=== PATIENT | male | born 1985 | race Caucasian/White ===

== ENCOUNTER 2016-10-24 19:17 | Emergency (ER) | payer MEDICAID, OTHER ==
[2016-10-24 20:34] VITALS: BP 171/107
[2016-10-24] MEDS ORDERED: Amoxicillin/Clavulanate TAB* 875 MG PO ONE (20:40)
[2016-10-24] MEDS ORDERED: Ketorolac INJ* 60 MG/2 ML VIAL IM ONE (20:40)
--- NOTE | 2016-10-24 20:56 | UC ---
Ear Complaint HPI - HPI Summary HPI Summary: THREE DAYS OF LEFT EAR PAIN TODAY BEGAN HAVING SORE THROAT. IN TRIAGE ELEVATED BLOOD PRESSURE NOTED. NO FEVER. NO HEADACHES. NO CHEST PAIN OR SHORTNESS OF BREATH. - History of Current Complaint Chief Complaint: UCRespiratory Stated Complaint: EAR PAIN Time Seen by Provider: 10/24/16 20:25 Hx Obtained From: Patient Onset/Duration: Gradual Onset, Lasting Days, Still Present Severity Initially: Mild Severity Currently: Moderate Associated Signs/Symptoms: Positive: URI Symptoms. Negative: Discharge, Hearing Loss, Foreign Body Sensation - Allergies/Home Medications Allergies/Adverse Reactions: Allergies Allergy/AdvReac Type Severity Reaction Status Date / Time No Known Allergies Allergy Verified 10/24/16 20:31 PMH/Surg Hx/FS Hx/Imm Hx Previously Healthy: Yes - Surgical History Surgical History: None - Family History Known Family History: Positive: Hypertension Negative: Cardiac Disease, Respiratory Disease - Social History Occupation: Employed Full-time Alcohol Use: Occasionally Substance Use Type: None Smoking Status (MU): Former Smoker Review of Systems Constitutional: Negative Skin: Negative Eyes: Negative ENT: Sore Throat, Ear Ache Respiratory: Negative Cardiovascular: Negative Gastrointestinal: Negative Genitourinary: Negative Motor: Negative Neurovascular: Negative Musculoskeletal: Negative Neurological: Negative Psychological: Negative All Other Systems Reviewed And Are Negative: Yes Physical Exam Triage Information Reviewed: Yes Appearance: Well-Appearing, No Pain Distress, Well-Nourished Vital Signs: Initial Vital Signs Temp 98.0 F 10/24/16 20:28 Pulse 64 10/24/16 20:28 Resp 18 10/24/16 20:28 BP 171/107 10/24/16 20:28 Pulse Ox 100 10/24/16 20:28 Vital Signs Reviewed: Yes Eye Exam: Normal Eyes: Positive: Conjunctiva Clear ENT: Positive: Hearing grossly normal, Pharyngeal erythema, TM bulging, TM dull , TM red, Tonsillar swelling Dental Exam: Normal Neck exam: Normal Neck: Positive: Supple, Nontender, No Lymphadenopathy Respiratory Exam: Normal Respiratory: Positive: Chest non-tender, Lungs clear, Normal breath sounds, No respiratory distress Cardiovascular Exam: Normal Cardiovascular: Positive: RRR, No Murmur, Pulses Normal, Brisk Capillary Refill Abdominal Exam: Normal Abdomen Description: Positive: Nontender, No Organomegaly Musculoskeletal Exam: Normal Neurological Exam: Normal Psychological Exam: Normal Skin Exam: Normal Ear Complaint Course/Dx - Differential Dx/Diagnosis Differential Diagnosis/HQI/PQRI: Otitis Externa, Otitis Media, Perforated TM, URI Provider Diagnoses: ELEVATED BLOOD PRESSURE. LEFT OTITIS MEDIA. TONSILLITIS Discharge - Discharge Plan Condition: Stable Disposition: HOME Prescriptions: Amoxicillin/Clavulanate TAB* [Augmentin TAB 875*] 875 mg PO BID #20 tab Patient Education Materials: Otitis Media (ED), Tonsillitis (ED), Hypertension (ED) [place]: [facility] [place]] No Primary Care Phys,NOPCP [Primary Care Provider] - Additional Instructions: IN ADDITION TO THE EAR ACHE AND SORE THROAT; TODAY YOU SHOW AN ABNORMALLY HIGH BLOOD PRESSURE. 171/101. PLEASE CALL TO MAKE AN APPOINTMENT TO BE SEEN BY PRIMARY CARE PROVIDER FOR CONTINUED EVALUATION WITHIN THE NEXT FOUR DAYS. PLEASE GO TO EMERGENCY DEPARTMENT FOR CONTINUED EVALUATION IF YOU HAVE HEADACHES , VISUAL DISTURBANCES, CHEST PAIN, SHORTNESS OF BREATH OR ANY OTHER NEW OR UNUSUAL SYMPTOMS.
== END 2016-10-24 21:02 | disposition home or self-care (01) ==
LOC: UCEAST 19:17
DX: H66.92 Otitis media, unspecified, left ear (principal); J03.90 Acute tonsillitis, unspecified; R03.0 Elevated blood-pressure reading, without diagnosis of hypertension; Z87.891 Personal history of nicotine dependence
CPT/HCPCS: 96372; 99212; A9270-GY; G0463; J1885

== ENCOUNTER 2017-01-10 08:40 | Emergency (ER) | payer OTHER ==
--- NOTE | 2017-01-10 08:57 | UC ---
Throat Pain/Nasal Eitan HPI - HPI Summary HPI Summary: Patient presents with 1-2 day onset complaints of stuffy head, ear and throat pain. He denies fever, chills, chest pain, dyspnea, nausea, vomiting. He states he is able to handle his own secretions. States the throat pain is constant, and is worse with swallowing. He reports no ill contacts. - History of Current Complaint Hx Obtained From: Patient Severity: Moderate Cough: None Associated Signs & Symptoms: Positive: Other - Epiglottits Risk Factors Epiglottis Risk Factors: Negative <Liliana Vee - Last Filed: 01/10/17 08:52> <Mitzy Mena - Last Filed: 01/10/17 09:29> - History of Current Complaint Stated Complaint: EAR PAIN Time Seen by Provider: 01/10/17 08:41 - Allergies/Home Medications Allergies/Adverse Reactions: Allergies Allergy/AdvReac Type Severity Reaction Status Date / Time No Known Allergies Allergy Verified 01/10/17 08:56 PMH/Surg Hx/FS Hx/Imm Hx Previously Healthy: Yes Cardiovascular History: Hypertension - Surgical History Surgical History: None - Family History Known Family History: Positive: Hypertension Negative: Cardiac Disease, Respiratory Disease - Social History Occupation: Employed Full-time Lives: Alone Alcohol Use: Occasionally Substance Use Type: None Smoking Status (MU): Former Smoker <Liliana Vee - Last Filed: 01/10/17 08:52> Review of Systems Constitutional: Fatigue ENT: Sore Throat, Ear Ache Respiratory: Other - chest congestion Gastrointestinal: Negative Genitourinary: Negative Motor: Negative All Other Systems Reviewed And Are Negative: Yes <Liliana Vee - Last Filed: 01/10/17 08:52> Physical Exam Triage Information Reviewed: Yes Appearance: Ill-Appearing Vital Signs Reviewed: Yes Eye Exam: Normal ENT: Positive: Pharyngeal erythema, Tonsillar swelling, Tonsillar exudate, Muffled/hoarse voice Neck exam: Normal Respiratory Exam: Normal Cardiovascular: Positive: Tachycardia Abdominal Exam: Normal Bowel Sounds: Positive: Present Musculoskeletal Exam: Normal Skin Exam: Normal <Liliana Vee - Last Filed: 01/10/17 08:52> Vital Signs: Initial Vital Signs Temp 100.4 F 01/10/17 08:56 Pulse 114 01/10/17 08:56 Resp 16 01/10/17 08:56 BP 127/93 01/10/17 08:56 Pulse Ox 97 01/10/17 08:56 <Mitzy Mena - Last Filed: 01/10/17 09:29> Throat Pain/Nasal Course/Dx - Course Course Of Treatment: Patient presents with strep throat, he was given RX for Penvk 500 mg po qid x 10days. He was instructed to rest, push fluids, and take tylenol, and advil every four hours as needed for fever, generalzied achiness, also to utilize throat lozengers. If for any reasons his symptoms worsen, persist or other symtpoms develop he need to seek immediate re-evaluation. He verbalized understanding and was in agreement with the discharge plan. - Differential Dx/Diagnosis Differential Diagnosis/HQI/PQRI: Pharyngitis Provider Diagnoses: strep throat <Liliana Vee - Last Filed: 01/10/17 08:52> Discharge <Liliana Vee - Last Filed: 01/10/17 08:52> <Mitzy Mena - Last Filed: 01/10/17 09:29> - Discharge Plan Condition: Stable Disposition: HOME Prescriptions: Penicillin VK TAB 500 MG(NF) [Penicillin VK 500 mg Tab(NF)] 500 mg PO QID #40 tab Patient Education Materials: Strep Throat (ED) Referrals: No Primary Care Phys,NOPCP [Primary Care Provider] - [facility] [place]] Attestation Statement User Type: Provider - I was available for consult. This patient was seen by the DAVID. The patient was not presented to, seen by, or examined by me. -Gage <Mitzy Mena - Last Filed: 01/10/17 09:29>
[2017-01-10 09:01] VITALS: BP 127/93
== END 2017-01-10 09:05 | disposition home or self-care (01) ==
LOC: UCEAST 08:40
DX: J02.0 Streptococcal pharyngitis (principal); I10 Essential (primary) hypertension; Z87.891 Personal history of nicotine dependence
CPT/HCPCS: 99212; G0463

== ENCOUNTER 2017-05-15 21:22 | Emergency (ER) | payer OTHER ==
[2017-05-16 00:34] LABS: Comments Flag Yes; Hematocrit 48 % (42-52); Hemoglobin 17.3 g/dl (14.0-18.0); Mean Corpuscular HGB Conc 36 g/dl (31-36); Mean Corpuscular Hemoglobin 33 pg (27-31); Mean Corpuscular Volume 91 fL (80-94); Mean Platelet Volume 7 um3 (7.4-10.4); Red Blood Count 5.23 10^6/ul (4.0-5.4); Red Cell Distribution Width 14 % (10.5-15); White Blood Count 7.3 10^3/ul (3.5-10.8)
[2017-05-16 00:48] LABS: ALT 63 U/L (7-52); Albumin 4.7 g/dL (3.2-5.2); Alkaline Phosphatase 25 U/L (34-104); BUN/Creatinine Ratio 16.9 (8-20); Blood Urea Nitrogen 15 mg/dL (6-24); CO2 Carbon Dioxide 24 mmol/L (22-32); Chloride 99 mmol/L (101-111); EGFR African American 127.4 (>60); EGFR Non-African American 99.1 (>60); Globulin 2.9 g/dL (2-4); Glucose 109 mg/dL (70-100); Sodium 132 mmol/L (133-145); Total Protein 7.6 g/dL (6.4-8.9)
[2017-05-16 00:49] LABS: Benzodiazepine Urine Screen None Detected (None Detect)
[2017-05-16 00:52] LABS: Urine Bacteria Absent (Absent); Urine Bilirubin Negative (Negative); Urine Glucose Negative (Negative); Urine Nitrite Negative (Negative)
[2017-05-16 01:14] LABS: AST 28 U/L (13-39); Acetaminophen < 15 mcg/mL; Alcohol < 10 mg/dL (<10); Anion Gap 9 mmol/L (2-11); Salicylate < 2.50 mg/dL (<30)
[2017-05-16 01:22] LABS: TSH (Thyroid Stimulating Horm) 2.92 mcIU/mL (0.34-5.60)
[2017-05-16] MEDS ORDERED: NS 0.9% 1000 ML* 1,000 ML IV SCH (02:45)
[2017-05-16] MEDS ORDERED: Iohexol 350* (CONTRAST) 500 ML MDV IV ONE (03:25)
[2017-05-16] MEDS ORDERED: Iodixanol* (CONTRAST) 320 MG/ML 100 ML SDV IV ONE (03:52)
[2017-05-16] MEDS ORDERED: hydrOXYzine HCL TAB* 25 MG PO ONE (04:48)
[2017-05-16 05:18] VITALS: BP 175/110
--- NOTE | 2017-05-16 05:21 | ED ---
Lexi Villegas Rebecca, scribed for Keyanna Barahonauel on 05/16/17 at 0056 . Psychiatric Complaint - HPI Summary HPI Summary: Pt is a 31 y/o M who presents to ED c/o anxiety, difficulty sleeping, SOB and palpitations. Pt suspects his anxiety has worsened due to difficult sleeping, alleviated by nothing. Denies depression, SIs, calf pain, CP. States that he has been "waking up, gasping for air." No PMHx anxiety. Pt began a tretament program to cease alcohol use 5 days ago. - History Of Current Complaint Chief Complaint: EDPsychosocial Time Seen by Provider: 05/16/17 00:06 Hx Obtained From: Patient Onset/Duration: Still Present Character: Anxious Aggravating Factor(s): Other - Dififculty sleeping Alleviating Factor(s): Nothing Associated Signs And Symptoms: Positive: Sleep Disturbance Related History: Negative For: Prior Psychiatric Issues Has Suicidal: Denies: Thoughts - Allergies/Home Medications Allergies/Adverse Reactions: Allergies Allergy/AdvReac Type Severity Reaction Status Date / Time No Known Allergies Allergy Verified 01/10/17 08:56 PMH/Surg Hx/FS Hx/Imm Hx Cardiovascular History: Reports: Hx Hypertension Psychiatric History: Denies: Hx Anxiety, Hx Depression Infectious Disease History: Yes Infectious Disease History: Denies: Traveled Outside the [place] in Last 30 Days - Family History Known Family History: Positive: Hypertension Negative: Cardiac Disease, Respiratory Disease - Social History Alcohol Use: Daily Alcohol Amount: 12-14 beers; havent drank in 4 days Substance Use Type: Reports: None Smoking Status (MU): Former Smoker Review of Systems Positive: Palpitations. Negative: Chest Pain Positive: Shortness Of Breath Positive: Other - NEGATIVE: calf pain Psychological: Other - Difficulty sleeping Positive: Anxious, Other - NEGATIVE: SIs. Negative: Depressed All Other Systems Reviewed And Are Negative: Yes Physical Exam - Summary Physical Exam Summary: Appearance: Well appearing, no pain distress Skin: warm, dry, reflects adequate perfusion Head/face: normal Eyes: EOMI, SUNNY ENT: normal Neck: supple, nontender Respiratory: CTA, breath sounds present Cardiovascular: RRR, pulses symmetrical Abdomen: nontender, soft Bowel: present Musculoskeletal: normal, strength/ROM intact Neuro: normal, sensory motor intact, A&Ox3 Triage Information Reviewed: Yes Vital Signs On Initial Exam: Initial Vitals Temp Pulse Resp BP Pulse Ox 98.1 F 87 20 195/111 98 05/15/17 21:30 05/15/17 21:30 05/15/17 21:30 05/15/17 21:30 05/15/17 21:30 Vital Signs Reviewed: Yes - [place] Coma Scale Coma Scale Total: 15 Diagnostics - Vital Signs Vital Signs Temp Pulse Resp BP Pulse Ox 05/16/17 00:30 63 142/94 97 05/16/17 00:09 82 98 05/16/17 00:07 142/100 05/15/17 21:30 98.1 F 87 20 195/111 98 - Laboratory Lab Results: Lab Results 05/16/17 Range/Units 00:20 WBC 7.3 (3.5-10.8) 10^3/ul RBC 5.23 (4.0-5.4) 10^6/ul Hgb 17.3 (14.0-18.0) g/dl Hct 48 (42-52) % MCV 91 (80-94) fL MCH 33 H (27-31) pg MCHC 36 (31-36) g/dl RDW 14 (10.5-15) % Plt Count 193 (150-450) 10^3/ul MPV 7 L (7.4-10.4) um3 Neut % (Auto) 61.0 (38-83) % Lymph % (Auto) 29.6 (25-47) % [place] % (Auto) 6.5 (1-9) % Eos % (Auto) 1.9 (0-6) % Baso % (Auto) 1.0 (0-2) % Absolute Neuts (auto) 4.4 (1.5-7.7) 10^3/ul Absolute Lymphs (auto) 2.2 (1.0-4.8) 10^3/ul Absolute Monos (auto) 0.5 (0-0.8) 10^3/ul Absolute Eos (auto) 0.1 (0-0.6) 10^3/ul Absolute Basos (auto) 0.1 (0-0.2) 10^3/ul Absolute Nucleated RBC 0.03 10^3/ul Nucleated RBC % 0.4 Result Diagrams: 05/16/17 00:20 05/16/17 00:20 Lab Statement: Any lab studies that have been ordered have been reviewed, and results considered in the medical decision making process. - Radiology CXR Xray Interpretation: No Acute Changes Radiology Interpretation Completed By: ED Physician - CT CTA Chest CT Interpretation: No Acute Changes - Negative for pulmonary embolus. Negative for thoracic aortic aneurysm or dissection. Lungs clear of acute disease. Fatty liver. ED physician reviewed radiology report and agrees. CT Interpretation Completed By: Radiologist Re-Evaluation - Re-Evaluation First Eval Re-Evaluation Time: 04:35 Comment: Discussed results with the pt. Course/Dx - Course Assessment/Plan: Pt is a 31 y/o M who presents to ED c/o anxiety, difficulty sleeping, SOB and palpitations. Pt suspects his anxiety has worsened due to difficult sleeping, alleviated by nothing. Denies depression, SIs, calf pain, CP. States that he has been "waking up, gasping for air." No PMHx anxiety. Pt began a tretament program to cease alcohol use 5 days ago. CXR and chest/thorax CTA reveal no acute findings. UA was done. IN the ED course, pt received fluids and Atarax. Medically cleared for MHE at 0435. Upon cmpletiong of MHE it has been determined that the pt will be D/C to home. Pt will be D/C to home with Dx of anxiety with Rx for Vistaril and a follow up with [facility] [place] Physician referral. He understands and agrees. Medications reviewed. Elevated BP noted. - Differential Dx/Clinical Impression Provider Diagnosis: Anxiety Discharge - Discharge Plan Condition: Stable Disposition: HOME Prescriptions: Hydroxyzine Pamoate [Vistaril] 25 mg PO TID #15 cap Patient Education Materials: Anxiety (ED) Referrals: [facility] [place] [facility] REFERRAL [Outside] - 3 Days The documentation as recorded by the Lexi rincon Rebecca accurately reflects the service I personally performed and the decisions made by , Michael Barahona.
--- NOTE | 2017-05-16 07:52 | RAD ---
HISTORY: Shortness of breath COMPARISONS: None VIEWS: 4: Frontal dual-energy and lateral views of the chest. FINDINGS: CARDIOMEDIASTINAL SILHOUETTE: The cardiomediastinal silhouette is normal. BILL: The bill are normal. PLEURA: The costophrenic angles are sharp. No pleural abnormalities are noted. LUNG PARENCHYMA: The lungs are clear. ABDOMEN: The upper abdomen is clear. There is no subphrenic gas. BONES AND SOFT TISSUES: No bone or soft tissue abnormalities are noted. OTHER: None. IMPRESSION: NO ACTIVE CARDIOPULMONARY DISEASE.
--- NOTE | 2017-05-16 08:07 | RAD ---
INDICATION: Chest pain. Short of breath. Evaluate for pulmonary embolus. COMPARISON: Chest x-ray May 16, 2017 TECHNIQUE: Axial source images were obtained from the thoracic inlet to the hemidiaphragms following administration of [address] angiographic technique was utilized. Coronal and sagittal reconstructed images were acquired. CHEST FINDINGS: Neck/thyroid: The visualized neck to include the thyroid appear normal. Chest wall: There are no acute abnormalities of the bony thorax or chest wall. There is no supraclavicular, infraclavicular, or axillary lymphadenopathy. Lungs : There are no pulmonary parenchymal masses or infiltrates. The pulmonary interstitium appears normal. There are no endobronchial lesions. Cardiomediastinal structures: There is no CT evidence of acute pulmonary embolic disease. The heart is normal in size. There is no pericardial effusion. There is no evidence of aortic aneurysm or dissection. There is no mediastinal or hilar adenopathy. The esophagus appears normal. Pleura : There are no pleural-based masses or effusions. Other: Limited views of the upper abdomen show hepatomegaly with hepatic steatosis.. IMPRESSION: NO CT EVIDENCE OF ACUTE PULMONARY EMBOLIC DISEASE. LUNGS CLEAR.
== END 2017-05-16 05:22 | disposition home or self-care (01) ==
LOC: ED 21:22
DX: F41.9 Anxiety disorder, unspecified (principal); R06.02 Shortness of breath; R00.2 Palpitations; Z87.891 Personal history of nicotine dependence
CPT/HCPCS: 36415; 71020; 71275; 80053; 80307; 80320; 80329; 81003; 81015; 84443; 84484; 85025; 85379; 99282; A9270-GY; G0480; Q9967

== ENCOUNTER 2018-05-23 01:37 | Emergency (ER) | payer OTHER ==
[2018-05-23] MEDS ORDERED: ALPRAZolam TAB* 0.5 MG PO ONE (02:56)
--- NOTE | 2018-05-23 03:48 | ED ---
Complex/Multi-Sys Presentation - HPI Summary HPI Summary: Patient is a 32 y/o M w/ c/o tingling in his arms and legs. Sx are reported to onset this night, states he was lying down when Sx onset. Patient reports difficulty sleeping over the past few days and swelling of feet as well. Recent trauma, N/V, SOB is denied. He notes Hx of HTN, unsure of names of blood pressure medication. Hx of anxiety and panic attacks as well, states he used to take lorazepam with relief in Sx, but does not do so currently. On triage, pain is denied, nothing is noted to aggravate/alleviate Sx. Home medications and allergies are reviewed. - History Of Current Complaint Chief Complaint: EDGeneral Time Seen by Provider: 05/23/18 02:40 Hx Obtained From: Patient Onset/Duration: Lasting Hours - onset last night, Still Present Timing: Constant, Hours - onset last night Severity Currently: None - pain is denied Aggravating Factor(s): nothing Alleviating Factor(s): nothing Associated Signs And Symptoms: Positive: Edema - feet, Other - POSITIVE: tingling in arms and legs, difficulty sleeping NEGATIVE: recent trauma. Negative: SOB, Nausea, Vomiting - Allergies/Home Medications Allergies/Adverse Reactions: Allergies Allergy/AdvReac Type Severity Reaction Status Date / Time No Known Allergies Allergy Verified 01/10/17 08:56 PMH/Surg Hx/FS Hx/Imm Hx Endocrine/Hematology History: Denies: Hx Diabetes Cardiovascular History: Reports: Hx Hypertension History: Denies: Hx Dialysis, Hx Renal Disease Psychiatric History: Denies: Hx Anxiety, Hx Depression Infectious Disease History: No Infectious Disease History: Denies: Traveled Outside the [place] in Last 30 Days - Family History Known Family History: Positive: Hypertension Negative: Cardiac Disease, Respiratory Disease - Social History Alcohol Use: None Alcohol Amount: 12-14 beers; havent drank in 4 days Substance Use Type: Reports: None Smoking Status (MU): Former Smoker Review of Systems Positive: Other - POSITIVE: difficulty sleeping NEGATIVE: recent trauma Negative: Shortness Of Breath Negative: Vomiting, Nausea Positive: Edema - feet Neurological: Other - arms and legs tingling All Other Systems Reviewed And Are Negative: Yes Physical Exam - Summary Physical Exam Summary: VITAL SIGNS: Reviewed. GENERAL: Patient is a well-developed and nourished male who is lying comfortable in the stretcher. Patient is not in any acute respiratory distress. HEAD AND FACE: No signs of trauma. No ecchymosis, hematomas or skull depressions. No sinus tenderness. EYES: PERRLA, EOMI x 2, No injected conjunctiva, no nystagmus. EARS: Hearing grossly intact. Ear canals and tympanic membranes are within normal limits. MOUTH: Oropharynx within normal limits. NECK: Supple, trachea is midline, no adenopathy, no JVD, no carotid bruit, no c- spine tenderness, neck with full ROM. CHEST: Symmetric, no tenderness at palpation LUNGS: Clear to auscultation bilaterally. No wheezing or crackles. CVS: Regular rate and rhythm, S1 and S2 present, no murmurs or gallops appreciated. ABDOMEN: Soft, non-tender. No signs of distention. No rebound no guarding, and no masses palpated. Bowel sounds are normal. EXTREMITIES: FROM in all major joints, no edema, no cyanosis or clubbing. NEURO: Alert and oriented x 3. No acute neurological deficits. Speech is normal and follows commands. SKIN: Dry and warm Triage Information Reviewed: Yes Vital Signs On Initial Exam: Initial Vitals Temp Pulse Resp BP Pulse Ox 98.1 F 100 20 173/93 98 05/23/18 01:39 05/23/18 01:39 05/23/18 01:39 05/23/18 01:39 05/23/18 01:39 Vital Signs Reviewed: Yes Diagnostics - Vital Signs Vital Signs Temp Pulse Resp BP Pulse Ox 05/23/18 03:02 18 05/23/18 01:39 98.1 F 100 20 173/93 98 - Laboratory Lab Statement: Any lab studies that have been ordered have been reviewed, and results considered in the medical decision making process. Re-Evaluation - Re-Evaluation First Eval Re-Evaluation Time: 03:47 Change: Improved Comment: Patient reports that he is feeling better. He will be discharged to home and follow up with PCP in 1-2 days. Patient is agreeable with this plan. Complex Multi-Symp Course/Dx Course Of Treatment: Patient is a 32 y/o M w/ c/o tingling in his arms and legs. Sx are reported to onset this night, states he was lying down when Sx onset. Patient reports difficulty sleeping over the past few days and swelling of feet as well. Recent trauma, N/V, SOB is denied. He notes Hx of HTN, unsure of names of blood pressure medication. Hx of anxiety and panic attacks as well, states he used to take lorazepam with relief in Sx, but does not do so currently. Physical exam was normal. During ED course, patient received Xanax 0.5 mg PO ONCE. 0347 - Patient reports that he is feeling better. He will be discharged to home and follow up with PCP in 1-2 days. Patient is agreeable with this plan. Dx of anxiety. - Diagnoses Provider Diagnoses: Anxiety Discharge - Sign-Out/Discharge Documenting (check all that apply): Patient Departure - discharge - Discharge Plan Condition: Stable Disposition: HOME Prescriptions: ALPRAZolam TAB* [Xanax TAB*] 0.5 mg PO BID PRN #10 tab MDD 2 PRN Reason: Anxiety Patient Education Materials: Anxiety (ED) Referrals: Dinh Kenney MD [Primary Care Provider] - 2 Days Additional Instructions: RETURN TO THE EMERGENCY DEPARTMENT FOR CHANGING OR WORSENING SYMPTOMS. FOLLOW UP WITH PRIMARY CARE PHYSICIAN IN 1-2 DAYS. - Attestation Statements Document Initiated by Scribe: Yes Documenting Scribe: Moises Schrader Provider For Whom Scribe is Documenting (Include Credential): Amisha Lauren MD Scribe Attestation: Moises Villegas , scribed for Amisha Lauren MD on 05/23/18 at 0504.
[2018-05-23 03:58] VITALS: BP 135/87
== END 2018-05-23 04:00 | disposition home or self-care (01) ==
LOC: ED 01:37
DX: F41.9 Anxiety disorder, unspecified (principal); R60.0 Localized edema; I10 Essential (primary) hypertension; Z87.891 Personal history of nicotine dependence
CPT/HCPCS: 99282; A9270-GY

== ENCOUNTER 2019-08-22 13:48 | Emergency (ER) | payer OTHER ==
[2019-08-22 16:31] VITALS: BP 154/91
--- NOTE | 2019-08-22 16:57 | ED ---
Upper Extremity Pain - HPI Summary HPI Summary: This patient is a 33-year-old male presenting to the ED with right index finger injury. Patient states he shot a nail from a nail gun through the distal tip of the right index finger. No bleeding noted. No traveled from the radial portion of the right distal index tip to the ulnar side. Denies any pain to the area. It appears been nail went through the fat pad of the distal fingertip. No bruising noted. Patient has full range of motion. No erythema or swelling noted. Denies any fevers. Last tetanus 2-3 years ago per patient. This was a work-related injury. . - History of Current Complaint Chief Complaint: EDExtremityUpper Stated Complaint: FINGER INJURY PER PT Time Seen by Provider: 08/22/19 15:10 Hx Obtained From: Patient Timing: Constant Severity Initially: Mild Severity Currently: None Character: Sharp Aggravating Factor(s): Nothing Alleviating Factor(s): Nothing Associated Signs & Symptoms: Positive: Negative - Allergies/Home Medications Allergies/Adverse Reactions: Allergies Allergy/AdvReac Type Severity Reaction Status Date / Time No Known Allergies Allergy Verified 08/22/19 14:00 PMH/Surg Hx/FS Hx/Imm Hx Previously Healthy: Yes Endocrine/Hematology History: Denies: Hx Diabetes Cardiovascular History: Reports: Hx Hypertension History: Denies: Hx Dialysis, Hx Renal Disease Sensory History: Denies: Hx Contacts or Glasses Opthamlomology History: Denies: Hx Contacts or Glasses Psychiatric History: Denies: Hx Anxiety, Hx Depression - Immunization History Date of Tetanus Vaccine: 2 yrs ago Date of Influenza Vaccine: 2019 Hx Pertussis Vaccination: No Immunizations Up to Date: Yes Infectious Disease History: No Infectious Disease History: Denies: Traveled Outside the [place] in Last 30 Days - Family History Known Family History: Positive: Hypertension Negative: Cardiac Disease, Respiratory Disease - Social History Occupation: Employed Full-time Lives: With Family Alcohol Use: None Alcohol Amount: 12-14 beers; havent drank in 4 days Hx Substance Use: No Substance Use Type: Reports: None Smoking Status (MU): Former Smoker Review of Systems Negative: Fever, Chills, Fatigue, Skin Diaphoresis Negative: Palpitations, Chest Pain Negative: Shortness Of Breath, Cough Negative: Arthralgia, Myalgia Positive: Other - puncture wounds to the bilateral sides of the distal tip of the R finger Neurological: Negative All Other Systems Reviewed And Are Negative: Yes Physical Exam Triage Information Reviewed: Yes Vital Signs On Initial Exam: Initial Vitals Temp Pulse Resp BP Pulse Ox 98.0 F 56 14 123/84 98 08/22/19 13:56 08/22/19 13:56 08/22/19 13:56 08/22/19 13:56 08/22/19 13:56 Vital Signs Reviewed: Yes Appearance: Positive: Well-Appearing, Well-Nourished Skin: Positive: Warm, Skin Color Reflects Adequate Perfusion Head/Face: Positive: Normal Head/Face Inspection Eyes: Positive: EOMI, Conjunctiva Clear Neck: Positive: Supple, No Lymphadenopathy Respiratory/Lung Sounds: Positive: Clear to Auscultation Cardiovascular: Positive: Pulses are Symmetrical in both Upper and Lower Extremities Musculoskeletal: Positive: Strength/ROM Intact Neurological: Positive: Speech Normal Psychiatric: Positive: Normal, Affect/Mood Appropriate AVPU Assessment: Alert Procedures - Sedation Patient Received Moderate/Deep Sedation with Procedure: No Diagnostics - Vital Signs Vital Signs Temp Pulse Resp BP Pulse Ox 08/22/19 16:30 96.4 F 86 20 154/91 100 08/22/19 13:56 98.0 F 56 14 123/84 98 - Laboratory Lab Statement: Any lab studies that have been ordered have been reviewed, and results considered in the medical decision making process. Course/Dx - Course Course Of Treatment: This patient is evaluated for distal tip of the right index finger injury from a nail. There is no erythema, no swelling, no bleeding. Tetanus up-to-date as of 2-3 years ago. Patient has no fevers. This occurred a few hours prior to arrival. Full range of motion. No pain to the distal tip and no bruising is noted. Nail bed is not involved. Patient encouraged Tylenol and ibuprofen. No antibiotics given. Pt refused cleanse of the wound as he wanted to be DC'd. Return precautions given. - Diagnoses Differential Diagnosis/HQI/PQRI: Positive: Other - nail gun injury, fracture Provider Diagnoses: Puncture wound of finger Discharge ED - Sign-Out/Discharge Documenting (check all that apply): Patient Departure - Discharge Plan Condition: Stable Disposition: HOME Referrals: Dinh Kenney MD [Primary Care Provider] - - Billing Disposition and Condition Condition: STABLE Disposition: Home - Attestation Statements Provider Attestation: I was available for consultation for this patient. I did not evaluate the patient, or participate in any medical decision making or disposition decisions unless I am specifically named in the chart as having consulted on the patient. If I have consulted on the patient, please see my own ED note on the patient encounter. Olivia Hickey MD
== END 2019-08-22 16:30 | disposition home or self-care (01) ==
LOC: ED 13:48
DX: S61.230A Puncture wound without foreign body of right index finger without damage to nail, initial encounter (principal); W29.4XXA Contact with nail gun, initial encounter; Y93.89 Activity, other specified; Y92.9 Unspecified place or not applicable; Y99.0 Civilian activity done for income or pay; I10 Essential (primary) hypertension; Z87.891 Personal history of nicotine dependence
CPT/HCPCS: 99282